=== PATIENT | female | born 1935 | race Caucasian/White ===

== ENCOUNTER 2022-08-04 17:08 | Observation (INO) ==
[2022-08-04] MEDS ORDERED: HYDROmorphone 1 MG/1 ML SYRINGE ONE (17:49)
[2022-08-04] MEDS ORDERED: ONDANSETRON 4 MG/2 ML VIAL ONE (17:49)
[2022-08-04] MEDS ORDERED: HYDROmorphone 1 MG/1 ML SYRINGE IV STA (17:51)
[2022-08-04] MEDS ORDERED: ONDANSETRON 4 MG/2 ML VIAL IV STA (17:51)
[2022-08-04 18:09] LABS: Albumin 4.1 G/DL (3.4-5.0); Bilirubin,Total 0.5 MG/DL (0.20-1.00); Calcium 9.9 MG/DL (8.5-10.1); Osmolality,Calculated 280.7 MOS/KG (273-304); Potassium 3.9 MMOL/L (3.5-5.1); Total Protein 7.5 G/DL (6.4-8.2)
[2022-08-04] MEDS ORDERED: ACETAMINOPHEN 325 MG TABLET PO PRN (18:13)
[2022-08-04 18:28] LABS: Basophils # 0.1 10*3/uL (0.0-0.2); Basophils % 0.9 % (0.0-0.8); Eosinophils # 1.2 10*3/uL (0.0-0.87); Eosinophils % 12.1 % (0.00-10.9); Hemoglobin 14.1 GM/DL (12.0-16.0); Immature Granulocytes % 0.2 %; Immature Granulocytes Absolute 0.02 #; Lymphocytes # 3.9 10*3/uL (1.4-4.0); Lymphocytes % 40.2 % (21.3-54.2); Mean Corpuscular HGB Conc 34.4 GM/DL (32-36); Mean Corpuscular Volume 96.9 FL (87-102); Mean Platelet Volume 10.8 FL (9.6-12.0); Monocytes # 0.8 10*3/uL (0.11-0.8); Monocytes % 7.8 % (1.7-12.7); Neutrophils % 38.8 % (38.7-73.9); Platelet Count 205 T/CUMM (130-400); Red Blood Count 4.23 MC/CUMM (3.8-5.5); Red Cell Distribution Width 13.1 % (9.3-17.3); White Blood Count 9.8 T/CUMM (4-12)
[2022-08-04 18:36] LABS: PT Patient Result 10.7 SECS (10.1-12.1); Partial Thromboplastin Time 27.4 SECS (23.7-32.9)
[2022-08-04 18:43] LABS: Albumin 4.1 G/DL (3.4-5.0); Bilirubin,Total 0.5 MG/DL (0.20-1.00); Calcium 9.7 MG/DL (8.5-10.1); Osmolality,Calculated 282.5 MOS/KG (273-304); Total Protein 7.3 G/DL (6.4-8.2)
[2022-08-04 18:53] LABS: Eosinophils 15 % (0-10); Lymphocytes 37 % (20-55); Total Cells Counted 100
[2022-08-04 18:54] LABS: Platelet Estimate Adequate
[2022-08-04] MEDS ORDERED: HYDROmorphone 1 MG/1 ML SYRINGE IV PRN (20:06)
[2022-08-04] MEDS: PANTOPRAZOLE 20 MG TABLET PO SCH (20:21)
[2022-08-04] MEDS: atenoloL 25 MG TABLET PO SCH (20:46)
[2022-08-05] MEDS: ONDANSETRON 4 MG/2 ML VIAL IV PRN ×2 (03:16→10:49)
[2022-08-05 05:02] LABS: Basophils % 0.5 % (0.0-0.8); Eosinophils # 0.1 10*3/uL (0.0-0.87); Eosinophils % 0.6 % (0.00-10.9); Hematocrit 39.6 VOL% (35.7-47.0); Hemoglobin 13.6 GM/DL (12.0-16.0); Immature Granulocytes % 0.2 %; Immature Granulocytes Absolute 0.02 #; Lymphocytes # 1.8 10*3/uL (1.4-4.0); Lymphocytes % 21.5 % (21.3-54.2); Mean Corpuscular HGB Conc 34.3 GM/DL (32-36); Mean Corpuscular Volume 95.9 FL (87-102); Mean Platelet Volume 10.5 FL (9.6-12.0); Monocytes # 0.4 10*3/uL (0.11-0.8); Monocytes % 5.1 % (1.7-12.7); Neutrophils % 72.1 % (38.7-73.9); Platelet Count 183 T/CUMM (130-400); Red Blood Count 4.13 MC/CUMM (3.8-5.5); White Blood Count 8.2 T/CUMM (4-12)
[2022-08-05 05:21] LABS: Bilirubin,Total 0.8 MG/DL (0.20-1.00); Calcium 9.7 MG/DL (8.5-10.1); Osmolality,Calculated 282.5 MOS/KG (273-304); Potassium 3.7 MMOL/L (3.5-5.1); Total Protein 7.5 G/DL (6.4-8.2)
[2022-08-05] MEDS ORDERED: CLINDAMYCIN INJ 900 MG/50 ML PREMIX IV ONE (06:44)
[2022-08-05] MEDS ORDERED: propofoL 200 MG/20 ML VIAL IV ONE (07:46)
[2022-08-05] MEDS ORDERED: LIDOCAINE 2% 5 ML VIAL ONE (07:46)
[2022-08-05] MEDS ORDERED: DEXAMETHASONE 4 MG/1 ML VIAL ONE (08:01)
[2022-08-05] MEDS ORDERED: ROPIVACAINE 0.5% 30 ML VIAL ONE (08:01)
[2022-08-05] MEDS ORDERED: LIDOCAINE 1% 5 ML VIAL ONE (08:01)
[2022-08-05] MEDS ORDERED: ONDANSETRON 4 MG/2 ML VIAL ONE (08:27)
[2022-08-05] MEDS ORDERED: ETOMIDATE 40 MG/20 ML VIAL IV ONE (08:27)
[2022-08-05] MEDS ORDERED: LACTATED RINGERS 1,000 ML IV SCH ×2 (08:30→10:00)
[2022-08-05] MEDS ORDERED: PANTOPRAZOLE 40 MG TABLET PO SCH (09:00)
[2022-08-05] MEDS ORDERED: DESFLURANE 1 UNIT/15 MINUTE INH ONE (09:08)
[2022-08-05] MEDS ORDERED: SUCCINYLCHOLINE 200 MG/10 ML VIAL ONE (09:08)
[2022-08-05] MEDS ORDERED: PHENYLEPHRINE 1 MG/10 ML SYRINGE IV ONE (09:08)
[2022-08-05] MEDS ORDERED: GLYCOPYRROLATE 0.4 MG/2 ML VIAL ONE (09:08)
[2022-08-05] MEDS ORDERED: MAGNESIUM HYDROXIDE SUSP 30 ML UDCUP PO PRN (09:48)
[2022-08-05] MEDS: NON-FORMULARY MEDICATION (Fluticasone-Umeclidin-Vilanter [Trelegy Ellipta] 100-62.5-25 mcg INH SCH (10:59)
[2022-08-05] MEDS: hydroCHLOROthiazide 25 MG TABLET PO SCH (11:00)
[2022-08-05] MEDS: amLODIPine 5 MG TABLET PO SCH (11:02)
[2022-08-05] MEDS: lisinopriL 20 MG TABLET PO SCH (11:02)
[2022-08-05] MEDS: ATORVASTATIN 40 MG TABLET PO SCH (11:02)
[2022-08-05] MEDS: PANTOPRAZOLE 20 MG TABLET PO SCH ×2 (11:02→20:31)
[2022-08-05] MEDS: CLINDAMYCIN INJ 900 MG/50 ML PREMIX IV SCH ×2 (16:46→23:19)
[2022-08-05] MEDS: atenoloL 25 MG TABLET PO SCH (20:31)
[2022-08-06 05:10] LABS: Basophils % 0.1 % (0.0-0.8); Hematocrit 32.9 VOL% (35.7-47.0); Hemoglobin 11.3 GM/DL (12.0-16.0); Immature Granulocytes % 0.3 %; Immature Granulocytes Absolute 0.04 #; Lymphocytes # 2.3 10*3/uL (1.4-4.0); Lymphocytes % 20.1 % (21.3-54.2); Mean Corpuscular HGB Conc 34.3 GM/DL (32-36); Mean Corpuscular Volume 97.3 FL (87-102); Mean Platelet Volume 10.6 FL (9.6-12.0); Monocytes # 0.9 10*3/uL (0.11-0.8); Monocytes % 7.5 % (1.7-12.7); Platelet Count 169 T/CUMM (130-400); Red Blood Count 3.38 MC/CUMM (3.8-5.5); Red Cell Distribution Width 13.1 % (9.3-17.3); White Blood Count 11.5 T/CUMM (4-12)
[2022-08-06 05:42] LABS: Calcium 9.1 MG/DL (8.5-10.1); Osmolality,Calculated 282.4 MOS/KG (273-304); Potassium 3.9 MMOL/L (3.5-5.1)
[2022-08-06 07:45] VITALS: BP 160/72
[2022-08-06] MEDS: ATORVASTATIN 40 MG TABLET PO SCH (08:34)
[2022-08-06] MEDS: lisinopriL 20 MG TABLET PO SCH (08:34)
[2022-08-06] MEDS: amLODIPine 5 MG TABLET PO SCH (08:34)
[2022-08-06] MEDS: hydroCHLOROthiazide 25 MG TABLET PO SCH (08:34)
[2022-08-06] MEDS: PANTOPRAZOLE 20 MG TABLET PO SCH (08:34)
[2022-08-06] MEDS: NON-FORMULARY MEDICATION (Fluticasone-Umeclidin-Vilanter [Trelegy Ellipta] 100-62.5-25 mcg INH SCH (08:36)
== END 2022-08-06 10:50 | disposition home health service (06) ==
LOC: N.EDINP 17:08 → N.ED 17:08 → SUATTDRO 18:13 → N.3E 19:39
PROVIDERS: ADMIT Hospitalist; ATTEND Family Medicine